=== PATIENT | female | born 1985 | race Caucasian/White ===

== ENCOUNTER 2025-03-14 10:02 | Outpatient (OUT) | payer OTHER, SELFPAY ==
--- OUTSIDE RECORDS SUMMARY | 2024-01-12 09:00 | XMS_ITS ---
Author Organization [facility] Address [address] [place] [phone] Care Team Providers Care Aesthetician Name Role Phone Avelina Hagan Unavailable [phone] REASON FOR VISIT anxiety and depression Encounters Encounter Location Date Provider Diagnosis Main [address] [place] [id number] 01/12/2024 Avelina Hagan Plan Of Treatment No Information Progress Notes * Pallavi BRAND RDOB: [birth year] (40 yo F)Acc No.[id number]:01/12/2024 Medical Note Patient: Pallavi GALLOWAY Provider: Darin Hagan MD :1985 A ge:38 Y S ex:Female Date:01/12/2024 Address:[address] [place], [place] [id number] Subjective: * Chief Complaints: * 1 . Anxiety and depression. * Medical History: Objective: * Vitals: Assessment: Plan: * Treatment: * Billing Information: * Visit Code: * Procedure Codes: * Electronic signature of Luis Hagan MD on 03/14/2025 at 10:08 AM EDT Sign off status: Pending * Provider: Darin Hagan MD Date: 01/12/2024 Generated for Printi ng/Faxing/eTransmitting on: 03/14/2025 10:08 AM EDT
--- OUTSIDE RECORDS SUMMARY | 2024-03-17 11:50 | XMS_ITS ---
Author Organization [facility] Address [address] [place] [address] Care Team Providers Care Refrigeration Tech Name Role Phone Claudio Cortes Primary Care Provider Encounters Encounter Location Date Provider Diagnosis [address] [place] [address] 03/17/2024 Claudio Cortes Adult general medica l examination Z00.00 ASSESSMENTS Encounter Date Diagnosis Assessment Notes Treatment Notes Treatment Clinical Notes Section Notes 03/17/2024 Adult general medical examination (ICD-10 - Z00.00) PLAN OF TREATMENT No Information Progress Notes * Pallavi JOSHIDOB: 5 (39 yo F)Acc No.[id number]:03/17/2024 Patient: Pallavi JOSHI :1985 Age:39 Y Sex:Female Address:[address] [place] [address] Subjective: * Chief Complaints: * * Medical History: * Surgical History: * Hospitalization/Major Diagno stic Procedure: * Medications: Objective: Assessment: * Assessment: 1. Adult general medical examination - Z00.00 (Primary) Plan: * Treatment: * Procedure Codes: * true * Date:
--- OUTSIDE RECORDS SUMMARY | 2024-03-23 04:00 | XMS_ITS ---
Author Organization [facility] Address [address] [place] [address] Care Team Providers Care Circulation Worker Name Role Phone Claudio Cortes Primary Care Provider RESULTS Component Value Reference Range Notes Comp. Metabolic Panel (14) ( CMP)(781748) Reviewed date:03/24/2024 06:34:21 AM Interpretation:Abnormal Performing Lab:[facility], [address] [facility], [place], [place] [id number], Phone - [phone], Director - Ruth Notes/Report: Glucose 102 70-99 mg/dL BUN 11 6-20 mg/dL Creatinine 0.75 0.57-1.00 mg/dL eGFR 104 >59 mL/min/1.73 BUN/Creatinine Ratio 15 9-23 Sodium 140 134-144 mmol/L Potassium 4.3 3.5-5.2 mmol/L Chloride 105 96-106 mmol/L Carbon Dioxide, Total 22 20-29 mmol/L Calcium 8.9 8.7-10.2 mg/dL Protein, Total 6.7 6.0-8.5 g/dL Albumin 4.5 3.9-4.9 g/dL Globulin, Total 2.2 1.5-4.5 g/dL A/G Ratio 2.0 Bilirubin, Total 0.3 0.0-1.2 mg/dL Alkaline Phosphatase 111 44-121 IU/L AST (SGOT) 24 0-40 IU/L ALT (SGPT) 34 0-32 IU/L Hemoglobin A1c (S/O) (194510 ) Reviewed date:03/24/2024 06:32:14 AM Interpretation:Normal Performing Lab:[address] [id number], Phone - [phone], Director - [facility] Notes/Report: Hemoglobin A1c 5.6 4.8-5.6 % . Prediabetes: 5.7 - 6.4 Diabetes: >6.4 Glycemic control for adults with diabetes: <7.0 TSH ([id number]) Reviewed date:03/24/2024 06:33:46 AM Interpretation:Normal Performing Lab:[address] [id number], Phone - [phone], Director - [facility] Notes/Report: TSH 1.730 0.450-4.500 uIU/mL CBC With Differential/Platel et ([id number]) Reviewed date:03/24/2024 06:35:15 AM Interpretation:Normal Performing Lab:[address] [id number], Phone - [phone], Director - [facility] Notes/Report: WBC 7.7 3.4-10.8 x10E3/uL RBC 4.81 3.77-5.28 x10E6/uL Hemoglobin 13.6 11.1-15.9 g/dL Hematocrit 40.9 34.0-46.6 % MCV 85 79-97 fL MCH 28.3 26.6-33.0 pg MCHC 33.3 31.5-35.7 g/dL RDW 12.7 11.7-15.4 % Platelets 289 150-450 x10E3/uL Neutrophils 55 Not Estab. % Lymphs 37 Not Estab. % Monocytes 7 Not Estab. % Eos 1 Not Estab. % Basos 0 Not Estab. % Immature Cells Neutrophils (Absolute) 4.2 1.4-7.0 x10E3/uL Lymphs (Absolute) 2.8 0.7-3.1 x10E3/uL Monocytes(Absolute) 0.5 0.1-0.9 x10E3/uL Eos (Absolute) 0.1 0.0-0.4 x10E3/uL Baso (Absolute) 0.0 0.0-0.2 x10E3/uL Immature Granulocytes 0 Not Estab. % Immature Grans (Abs) 0.0 0.0-0.1 x10E3/uL NRBC Hematology Comments: Lipid Panel w/ Chol/HDL Rati o ([id number]) Reviewed date:03/24/2024 06:33:14 AM Interpretation:Abnormal Performing Lab:[facility], [address] [place] [address], [place], [place] [id number], Phone - [phone], Director - Ruth Notes/Report: Cholesterol, Total 216 100-199 mg/dL Triglycerides 87 0-149 mg/dL HDL Cholesterol 55 >39 mg/dL VLDL Cholesterol Sloan 15 5-40 mg/dL LDL Chol Calc ([facility]) 146 0-99 mg/dL LDL Calc Comment: T. Chol/HDL Ratio 3.9 0.0-4.4 ratio T. Chol/HDL Ratio Men Women 1/2 Avg.Risk 3.4 3.3 Avg.Risk 5.0 4.4 2X Avg.Risk 9.6 7.1 3X Avg.Risk 23.4 11.0 REASON FOR VISIT fasting labs MEDICATIONS Medication SIG (Take, Route, Frequency, Duration) Notes Start Date End Date Status Escitalopram Oxalate 10 MG Oral for 30 Days Active buPROPion HCl ER (XL) 300 MG Oral for 30 Days Active Encounters Encounter Location Date Provider Diagnosis [address] [place] [id number] 03/23/2024 Claudio Cortes Adult general medica l examination Z00.00 ASSESSMENTS Encounter Date Diagnosis Assessment Notes Treatment Notes Treatment Clinical Notes Section Notes 03/23/2024 Adult general medical examination (ICD-10 - Z00.00) PLAN OF TREATMENT No Information Procedure Notes * Category Sub-Category Detail Notes Venipuncture Venipuncture: 21 g butterfly, RT AC Space, 1 of Attempts, Successful, sitting, Pressure and Clean Bandage Applied, Pt Tolerated Well Lauren GOMEZ Progress Notes * Pallavi BRANDDOB: [birth year] (39 yo F)Acc No.[id number]:03/23/2024 Patient: CATHIEJessikaPallavi Provider: Claudio Cortes MD :1985 Age:39 Y Sex:Female Date:03/23/2024 Address:[address] [place], [place] [id number] Subjective: * Chief Complaints: * 1. Fasting labs. * Medical History: * Medications: Taking buPROPion HCl ER (XL) 300 MG Tablet Extended Release 24 Hour Oral , Taking Escitalopram Oxalate 10 MG Tablet Oral Objective: Assessment: * Assessment: 1. Adult general medical examination - Z00.00 Plan: * Treatment: Value Reference Range Glucose, Serum 102 H 70-99 - mg/dL * BUN 11 6-20 - mg/dL * Creatinine, Serum 0.75 0.57-1.00 - mg/dL * BUN/Creatinine Ratio 15 9-23 - * Sodium, Serum 140 134-144 - mmol/L * Potassium, Serum 4.3 3.5-5.2 - mmol/L * Chloride, Serum 105 96-106 - mmol/L * Carbon Dioxide, Total 22 20-29 - mmol/L * Calcium, Serum 8.9 8.7-10.2 - mg/dL * Protein, Total, Serum 6.7 6.0-8.5 - g/dL * Albumin, Serum 4.5 3.9-4.9 - g/dL * Globulin, Total 2.2 1.5-4.5 - g/dL * A/G Ratio 2.0 - * Bilirubin, Total 0.3 0.0-1.2 - mg/dL * Alkaline Phosphatase, S 111 44-121 - IU/L * AST (SGOT) 24 0-40 - IU/L * ALT (SGPT) 34 H 0-32 - IU/L * eGFR 104 >59 - mL/min/1.73 * This lab was reviewed by Miguel Cortes on 03/24/2024 at 06:34 AM MDT ?LAB: Hemoglobin A1c (S/O) ([id number])* Value Reference Range Hemoglobin A1c 5.6 4.8-5.6 - % * This lab was reviewed by Miguel Cortes on 03/24/2024 at 06:32 AM MDT ?LAB: TSH ([id number])* Value Reference Range TSH 1.730 0.450-4.500 - uIU/mL * This lab was reviewed by Miguel Cortes on 03/24/2024 at 06:33 AM MDT ?LAB: CBC With Differential/Platelet ([id number])* Value Reference Range WBC 7.7 3.4-10.8 - x10E3/uL * RBC 4.81 3.77-5.28 - x10E6/uL * Hemoglobin 13.6 11.1-15.9 - g/dL * Hematocrit 40.9 34.0-46.6 - % * MCV 85 79-97 - fL * MCH 28.3 26.6-33.0 - pg * MCHC 33.3 31.5-35.7 - g/dL * RDW 12.7 11.7-15.4 - % * Platelets 289 150-450 - x10E3/uL * Neutrophils 55 Not Estab. - % * Lymphs 37 Not Estab. - % * Monocytes 7 Not Estab. - % * Eos 1 Not Estab. - % * Basos 0 Not Estab. - % * Neutrophils (Absolute) 4.2 1.4-7.0 - x10E3/u L * Lymphs (Absolute) 2.8 0.7-3.1 - x10E3/uL * Monocytes(Absolute) 0.5 0.1-0.9 - x10E3/uL * Eos (Absolute) 0.1 0.0-0.4 - x10E3/uL * Baso (Absolute) 0.0 0.0-0.2 - x10E3/uL * Immature Granulocytes 0 Not Estab. - % * Immature Grans (Abs) 0.0 0.0-0.1 - x10E3/uL * This lab was reviewed by Miguel Cortes on 03/24/2024 at 06:35 AM MDT ?LAB: Lipid Panel w/ Chol/HDL Ratio (454934)* Value Reference Range Cholesterol, Total 216 H 100-199 - mg/dL * Triglycerides 87 0-149 - mg/dL * HDL Cholesterol 55 >39 - mg/dL * T. Chol/HDL Ratio 3.9 0.0-4.4 - ratio * VLDL Cholesterol Sloan 15 5-40 - mg/dL * LDL Chol Calc ([facility]) 146 H 0-99 - mg/dL * Claudio Cortes 03/24/2024 06:33 :05 AM MDT > will do ASCVD as if 40y/oThis lab was reviewed by Claudio Cortes on 03/24/2024 at 06:33 AM T * Procedures: Venipuncture: Venipuncture: 21 g butterfly, RT AC Space, 1 of Attempts, Successful, sitting, Pressure and Clean Bandage Applied, Pt Tolerated Well Lauren GOMEZ. * Billing Information: * Visit Code: * Procedure Codes: * Sign off status: Completed true * Provider: Claudio Cortes MD Date: 03/23/2024
--- OUTSIDE RECORDS SUMMARY | 2024-03-24 05:30 | XMS_ITS ---
Author Organization [facility] Address [address] [place] [address] Care Team Providers Care Organizational Development Director Name Role Phone Claudio Cortes Primary Care Provider ALLERGIES Allergen (clinical drug ingredient) Drug/Non Drug Allergy documented on EMR Reaction Allergy Type Onset Date Status sulfamethoxazole / trimethoprim Bactrim rash Drug Allergy Active REASON FOR VISIT wellness MEDICATIONS Medication SIG (Take, Route, Frequency, Duration) Notes Start Date End Date Status buPROPion HCl ER (XL) 300 MG Oral for 30 Days Active Escitalopram Oxalate 10 MG Oral for 30 Days Active SOCIAL HISTORY Tobacco Use: Social History Observation Description Date Details (start date - stop date) Never Smoker NA - NA Sex Assigned At : Social History Observation Description Sex Assigned At Unknown Tobacco Use/Smoking Question Answer Notes Are you a nonuser Section Notes: EtOH - none. No illicit drugs Home with husb , 2 kids Preschool at [place] VITAL SIGNS Heart Rate 81 /min 03/24/2024 Oximetry 99 % 03/24/2024 Blood pressure systolic 120 mm Hg 03/24/20 24 Blood pressure diastolic 70 mm Hg 024 Weight 157.2 lbs 03/24/2024 Height 64 in 03/24/2024 BMI 26.98 03/24/2024 Weight-kg 71.3 kg 03/24/2024 Encounters Encounter Location Date Provider Diagnosis [place] [address] [place] [address] 03/24/2024 Claudio Cortes Adult general medica l examination Z00.00 ; Mild hyperlipidemia E78.5 ; Hyperglycemia R73.9 ; Plaque psoriasis L40.0 ; Psoriatic arthritis L40.50 and Major depressive disorder, single episode, moderate F32.1 ASSESSMENTS Encounter Date Diagnosis Assessment Notes Treatment Notes Treatment Clinical Notes Section Notes 03/24/2024 Adult general medical examination (ICD-10 - Z00.00) Discussed with pt the benefits of aerobic and strength exercise and discussed practical options for both with consideration of their current medical and functional condition. Discussed attempting to achieve/maintain their optimal waist circumference or potentially a decrease in weight of 10% vs a decrease in waist circumference of 3 to achieve a medical improvement. Suggested a clean diet with portion control with adequate healthy fats and little processing. Try to avoid high fructose corn syrup, aspartame and sucralose.Discusse d safety measures, including car and abduction considerations, specific to the patient. Discussed importance of sleep and ideas for improved sleep hygeine. Discussed colonoscopy recommendations based on age and prior results. Recommended self breast exam monthly. Discussed recommendations for pap smear based on age, sexual history and prior pap results. Discussed timing of bone density based on age, age at menopause and risk factors. Reviewed recommendations for all age-appropriate vaccines, injections. Recommend yearly flu shot. Calcium intake should be 8368-3885 mg daily - preferably from dietary sources but can supplement if dietary intake is inadequate. Take vitamin D3 2000 IU daily. 03/24/2024 Mild hyperlipidemia (ICD-10 - E78.5) Discussed lipids and calculated ASCVD risk at 0.6%. Counseled on lowering LDL with diet and wt loss. Noted that lipids do not follow a prediabetic pattern 03/24/2024 Hyperglycemia (ICD-10 - R73.9) Discussed h/o gestational diabetes. Feel this episode may relate to prolonged fasting. Will repeat glucose next year with a shorter fast. Reviewed normal a1c. Discussed lowering risk of DM in the future with diet and optimal WC. 03/24/2024 Plaque psoriasis (ICD-10 - L40.0) Cont to work with dermatology - currently seeking approval for otezla 03/24/2024 Psoriatic arthritis (ICD-10 - L40.50) Discussed importance of addressing inflammatory arthritis early to avoid further joint destruction. Offered assistance if needed in otezla approval process. 03/24/2024 Major depressive disorder, single episode, moderate (ICD-10 - F32.1) Discussed prior unsuccessful attempts at dose reduction. Will cont current doses of escitalopram and bupropion. Reinforced diet, exercise, prayer/meditation means to help maintain her mood status. 03/24/2024 Other Specific to thi s patient and their age, fitness level and comorbid conditions, discussed practical suggestions for aerobic, strength exercise and optimal diet. Try not to focus on weight but on waist circumference and healthy habits. Try to avoid artificial sugars like high fructose corn syrup, aspartame, sucralose - stevia may be better. Try to stand more and consider talking/singing while walking or in car. Limit processed foods. Discussed optimal waist circumference. Discussed concept that 100 calorie differences could be worth more that 10 lbs each year and gave examples of these. PLAN OF TREATMENT Treatment Notes Assessment Notes Adult general medical examination Discus sed with pt the benefits of aerobic and strength exercise and discussed practical options for both with consideration of their current medical and functional condition. Discussed attempting to achieve/maintain their optimal waist circumference or potentially a decrease in weight of 10% vs a decrease in waist circumference of 3 to achieve a medical improvement. Suggested a clean diet with portion control with adequate healthy fats and little processing. Try to avoid high fructose corn syrup, aspartame and sucralose.Discussed safety measures, including car and abduction considerations, specific to the patient. Discussed importance of sleep and ideas for improved sleep hygeine. Discussed colonoscopy recommendations based on age and prior results. Recommended self breast exam monthly. Discussed recommendations for pap smear based on age, sexual history and prior pap results. Discussed timing of bone density based on age, age at menopause and risk factors. Reviewed recommendations for all age-appropriate vaccines, injections. Recommend yearly flu shot. Calcium intake should be 0016-9542 mg daily - preferably from dietary sources but can supplement if dietary intake is inadequate. Take vitamin D3 2000 IU daily. Mild hyperlipidemia Discussed lipids and calculated ASCVD risk at 0.6%. Counseled on lowering LDL with diet and wt loss. Noted that lipids do not follow a prediabetic pattern Hyperglycemia Discussed h/o gestat ional diabetes. Feel this episode may relate to prolonged fasting. Will repeat glucose next year with a shorter fast. Reviewed normal a1c. Discussed lowering risk of DM in the future with diet and optimal WC. Plaque psoriasis Cont to work with [facility] - currently seeking approval for [facility] Psoriatic arthritis Discussed importance of addressing inflammatory arthritis early to avoid further joint destruction. Offered assistance if needed in otezla approval process. Major depressive disorder, s carlos episode, moderate Discussed prior unsuccessful attempts at dose reduction. Will cont current doses of escitalopram and bupropion. Reinforced diet, exercise, prayer/meditation means to help maintain her mood status. Other Specific to this pat ient and their age, fitness level and comorbid conditions, discussed practical suggestions for aerobic, strength exercise and optimal diet. Try not to focus on weight but on waist circumference and healthy habits. Try to avoid artificial sugars like high fructose corn syrup, aspartame, sucralose - stevia may be better. Try to stand more and consider talking/singing while walking or in car. Limit processed foods. Discussed optimal waist circumference. Discussed concept that 100 calorie differences could be worth more that 10 lbs each year and gave examples of these. Next Appt Details Follow Up: 1 Year, Reason: lennox delgado Progress Notes * Pallavi BRANDDOB: [birth year] (39 yo F)Acc No.[id number]:03/24/2024 Patient: Pallavi BRAND Provider: Claudio Cortes MD :1985 Age:39 Y Sex:Female Date:03/24/2024 Address:[address] [place], [place] [address] Subjective: * Chief Complaints: * Wellness * HPI: Depression/Anxiety Screening: PHQ-2 (2015 Edition)* Little interest or pleasure in doing things? Not at all Feeling down, depressed or hopeless? Not at all Total score: 0 Depression Screening: CHRISTINA-7 (2018 Edition) Feeling nervous, anxious, or on edge Not at all Not being able to stop or control worrying Not at all Worrying too much about different things Not at all Trouble relaxing Not at all Being so restless that it is hard to sit still Not at all Becoming easily annoyed or irritable Not at all Feeling afraid as if something awful might happen Not at all Total CHRISTINA-7 Score 0 Interpretation of Total (0 to 4) No Anxiety *: Feels well. Getting ready for grad republic[employer]. Denies any pain. Has been working with dermatology on starting otezla. Small red patches on ankles, knees and elbows. Sleep is good. Good bowel, bladder fxn. Denies moles changing. Does regular SBE. Feels diet is pretty good. No attention to artificial sugars. Lots of flavored teas. * Medical History: * Store Lead History: Periods : every 20-25 days, normal blood loss. Last pap smear date 03/01/2021. Last mammogram date 03/20/2021. * OB History: Total pregnancies 1. # 1: 1, normal spontaneous vaginal delivery () - vacuum assist. * Surgical History: No Surgical History documented. * Hospitalization/Major Diagno stic Procedure: No Hospitalization History. * Family History: Father: alive 64 yrs, diagnosed with Hypertension, Hyperlipidemia, Arthritis. Mother: alive 62 yrs. Son(s): alive 17 yrs. Sister 1: alive 33 yrs. Brother 1: alive 41 yrs. * Social History: Tobacco Use: Tobacco Use/Smoking Are you a nonuser EtOH - none. No illicit drugs Home with [facility] , 2 kids Preschool at [place]. * Medications: TakingbuPROPion HCl ER (XL) 300 MG Tablet Extended Release 24 Hour Oral Escitalopram Oxalate 10 MG Tablet Oral Medication List reviewed and reconciled with the patientTaking buPROPion HCl ER (XL) 300 MG Tablet Extended Release 24 Hour Oral Taking Escitalopram Oxalate 10 MG Tablet Oral Medication List reviewed and reconciled with the patient * Allergies: Bactrim: rash - Allergy - Criticality Unknownno[Allergies Verified] Objective: * Vitals: HR:81, Oxygen sat:99%, BP:120/70mm Hg, Wt:157.2lbs, Wt Ch.6 lbs, Wt Chg %: 3.69%, Ht:64in, BMI:26.98, WC:33.5Inch, Wt-k.3 kg. * Examination: General Exam: : GENERAL APPEARANCE: alert and oriented, pleasant, well nourished, no acute distress. HEAD: normocephalic , atraumatic , no scalp lesions. EYES: pupils equal, round, reactive to light and accommodation, extraocular movement intact, conjunctiva clear. EARS: auditory canal clear, tympanic membrane intact, clear, light reflex present. NOSE: nares patent. ORAL CAVITY: mucosa moist, no lesions. Dentition is good. THROAT: clear, no erythema, no exudate, uvula midline. NECK/THYROID: neck supple, thyroid normal, no lymphadenopathy. LYMPH NODES: no cervical adenopathy. HEART: S1, S2 normal, regular rate and rhythm, no murmurs. LUNGS: clear to auscultation bilaterally, good air movement, no wheezes, rales, rhonchi. CHEST: normal shape and expansion. No palpable mass. ABDOMEN: normal bowel tones present, soft, nontender, nondistended, no masses palpable. MUSCULOSKELETAL: full range of motion of neck, shoulders, elbows, wrists, full range of motion in hips, knees, ankles, no swelling of any joints noted. SKIN: warm and dry, good turgor, no rashes. EXTREMITIES: no cyanosis, clubbing, or edema. Lito red patches ant ankles, posterior elbows.. PERIPHERAL PULSES: normal (2+) bilaterally. NEUROLOGIC: nonfocal, normal exam. PSYCH: alert, oriented, cognitive function intact, cooperative with exam, speech clear. Assessment: * Assessment: 1. Adult general medical examination - Z00.00 (Primary) 2. Mild hyperlipidemia - E78.5 3. Hyperglycemia - R73.9 4. Plaque psoriasis - L40.0 5. Psoriatic arthritis - L40.50 6. Major depressive disorder, single episode, moderate - F32.1 Plan: * Treatment: 2. Mild hyperlipidemia Notes: Discussed lipids and calculated ASCVD risk at 0.6%. Counseled on lowering LDL with diet and wt loss. Noted that lipids do not follow a prediabetic pattern 3. Hyperglycemia Notes: Discussed h/o gestational diabetes. Feel this episode may relate to prolonged fasting. Will repeat glucose next year with a shorter fast. Reviewed normal a1c. Discussed lowering risk of DM in the future with diet and optimal WC. 4. Plaque psoriasis Notes: Cont to work with dermatology - currently seeking approval for otezla 5. Psoriatic arthritis Notes: Discussed importance of addressing inflammatory arthritis early to avoid further joint destruction. Offered assistance if needed in otezla approval process. 6. Major depressive disorder, single episode, moderate Notes: Discussed prior unsuccessful attempts at dose reduction. Will cont current doses of escitalopram and bupropion. Reinforced diet, exercise, prayer/meditation means to help maintain her mood status. 7. Others Notes: Specific to this patient and their age, fitness level and comorbid conditions, discussed practical suggestions for aerobic, strength exercise and optimal diet. Try not to focus on weight but on waist circumference and healthy habits. Try to avoid artificial sugars like high fructose corn syrup, aspartame, sucralose - stevia may be better. Try to stand more and consider talking/singing while walking or in car. Limit processed foods. Discussed optimal waist circumference. Discussed concept that 100 calorie differences could be worth more that 10 lbs each year and gave examples of these. * Procedure Codes: 1036F Nicotine [id number] BMI [id number] Depression [id number] Anxiety ScreeningASCVD ASCVD COUNSELING * Follow Up: 1 Year (Reason: wellness) * Billing Information: * Visit Code: 34101 Prev visit est age 18 - 39 comprehensive exam. * Procedure Codes: 1036F Nicotine Screening - Non-user (Current). 3008F BMI Screening. 3351F Depression Screening - NEGATIVE Screening (PHQ9 <10). 87862 Anxiety Screening. ASCVD ASCVD COUNSELING. * Sign off status: Completed true * Provider: Claudio Cortes MD Date: 03/24/2024 History and Physical Notes * HPI (History of Present Illness) Category Sub-Category Detail Notes Category Not es Depression/Anxiety Screening PHQ-2 (2015 Edition)* Little interest or pleasure in doing things?: Not at all Feeling down, depressed or hopeless?: No t at all Total score:: 0 Depression Screening CHRISTINA-7 (2018 Edition) Feelin g nervous, anxious, or on edge: Not at all Not being able to stop or control worryi ng: Not at all Worrying too much about different things : Not at all Trouble relaxing: Not at all Being so restless that it is hard to sit still: Not at all Becoming easily annoyed or irritable: No t at all Feeling afraid as if something awful rolando ht happen: Not at all Total CHRISTINA-7 Score: 0 Interpretation of Total: (0 to 4) No Anx iety * Feels well. Get ting ready for grad republican. Denies any pain. Has been working with dermatology on starting otezla. Small red patches on ankles, knees and elbows. Sleep is good. Good bowel, bladder fxn. Denies moles changing. Does regular SBE. Feels diet is pretty good. No attention to artificial sugars. Lots of flavored teas. Examination Category Sub-Category Detail Notes Category Not es General Exam: GENERAL APPEARANCE: alert and or iented, pleasant, well nourished, no acute distress HEAD: normocephalic , atra umatic , no scalp lesions EYES: pupils equal, round, reactive to light and accommodation, extraocular movement intact, conjunctiva clear EARS: auditory canal clear , tympanic membrane intact, clear, light reflex present NOSE: nares patent THROAT: clear, no erythema, no exudate, uvula midline NECK/THYROID: neck supple, thyroid normal, no lymphadenopathy HEART: S1, S2 normal, regul ar rate and rhythm, no murmurs CHEST: normal shape and exp ansion. No palpable mass LUNGS: clear to auscultatio n bilaterally, good air movement, no wheezes, rales, rhonchi ABDOMEN: normal bowel tones p resent, soft, nontender, nondistended, no masses palpable NEUROLOGIC: nonfocal, normal exa m SKIN: warm and dry, good t urgor, no rashes EXTREMITIES: no cyanosis, clubbin g, or edema. Lito red patches ant ankles, posterior elbows. PERIPHERAL PULSES: normal (2+) bilatera lly MUSCULOSKELETAL: full range of motion of neck, shoulders, elbows, wrists, full range of motion in hips, knees, ankles, no swelling of any joints noted LYMPH NODES: no cervical adenopat hy PSYCH: alert, oriented, cog nitive function intact, cooperative with exam, speech clear ORAL CAVITY: mucosa moist, no les ions. Dentition is good
--- OUTSIDE RECORDS SUMMARY | 2024-04-09 04:45 | XMS_ITS ---
Author Organization [facility] vices Address [address] [place] [place] [id number] Care Team Providers Care Rotary Furnace Tender Name Role Phone Avelina Hagan Unavailable [phone] REASON FOR VISIT f/u depression & anxiety Encounters Encounter Location Date Provider Diagnosis Main [address] [place] [id number] 04/09/2024 Avelina Hagan Plan Of Treatment No Information Progress Notes * Pallavi BRAND RDOB: [birth year] (40 yo F)Acc No.[id number]:04/09/2024 Medical Note Patient: Dari GALLOWAYnifer Porsha Provider: Darin Hagan MD :1985 A ge:39 Y S ex:Female Date:04/09/2024 Address:[address] [place], [place] [id number] Subjective: * Chief Complaints: * 1 . F/u depression & anxiety. * Medical History: Objective: * Vitals: Assessment: Plan: * Treatment: * Billing Information: * Visit Code: * Procedure Codes: * Electronic signature of Luis Hagan MD on 03/14/2025 at 10:07 AM EDT Sign off status: Pending * Provider: Darin Hagan MD Date: 04/09/2024 Generated for Printi ng/Faxing/eTransmitting on: 03/14/2025 10:07 AM EDT
--- OUTSIDE RECORDS SUMMARY | 2025-03-14 10:07 | XMS_ITS | Encounter Summary ---
Author Organization [facility] Address [id number] [address] [place] [address] Care Team Providers Care Certified Executive Chef Name Role Phone Staci Clay APRN-STOVE BOTTOM WORKER Primary Care Provider [phone] Reason for Visit * Reason Onset Date Comments Med Refill 05/07/2017 Encounter Details Date Type Department Care Team (Late st Contact Info) Description 05/07/2017 Refill [facility] [address] [place] [address] Any Gonsalez MA Anxiety (Primary Dx); Depression, unspecified depression type Social History Tobacco Use Types Packs/Day Years Used Date Smoking Tobacco: Never Assessed Comments Unknown Sex and Gender Information Value Date Recorded Sex Assigned at Not on file Legal Sex Female 11:38 AM EDT Gender Identity Not on file Sexual Orientation Not on file documented as of this encounter Miscellaneous Notes * Telephone Encounter - Any Gonsalez MA - 08/05/2017 3:56 PM EDT Left msg for pt * Telephone Encounter - Avelina Hagan MD - 05/08/2017 10:04 AM EDT Please schedule follow up appt. * Telephone Encounter - Any Gonsalez MA - 05/07/2017 11:06 AM EDT Pt ready for refill of her escitalopram Any Gonsalez MA 05/07/17 1106 documented in this encounter Plan of Treatment Not on file documented as of this encounter Visit Diagnoses Diagnosis Anxiety- Primary Anxiety state, unspecified Depression, unspecified depression type documented in this encounter Care Teams Certified Executive Chef Relationship Specialty Start Date End Date Staci Clay, DISABILITY PROGRAM NAVIGATOR-STOVE BOTTOM WORKER [address] [place] [address] PCP - General Nurse Practitioner 10/25/24 documented as of this encounter
--- OUTSIDE RECORDS SUMMARY | 2025-03-14 10:07 | XMS_ITS | Encounter Summary ---
Author Organization [facility] Address [facility] [id number] [address] [place] [address] Care Team Providers Care Dog Pound Attendant Name Role Phone Staci Clay Primary Care Provider [phone] Reason for Visit * Reason Comments Med Refill Encounter Details Date Type Department Care Team (Late st Contact Info) Description 02/26/2017 Refill [facility] [address] [place] [address] [facility] [place], [place] [id number] Anxiety (Primary Dx); Depression, unspecified depression type Social History Tobacco Use Types Packs/Day Years Used Date Smoking Tobacco: Never Assessed Comments Unknown Sex and Gender Information Value Date Recorded Sex Assigned at Not on file Legal Sex Female 11:38 AM EDT Gender Identity Not on file Sexual Orientation Not on file documented as of this encounter Plan of Treatment Not on file documented as of this encounter Visit Diagnoses Diagnosis Anxiety- Primary Anxiety state, unspecified Depression, unspecified depression type documented in this encounter Care Teams Dog Pound Attendant Relationship Specialty Start Date End Date Staci Clay APRN-CNP [address] [place] [address] PCP - General Nurse Practitioner 10/25/24 documented as of this encounter
--- OUTSIDE RECORDS SUMMARY | 2025-03-14 10:07 | XMS_ITS | Encounter Summary ---
Author Organization [facility] Address [facility] [id number] [address] [place] [address] Care Team Providers Care Linesperson Name Role Phone Staci Clay Primary Care Provider [phone] Reason for Visit * Reason Comments Med Refill Encounter Details Date Type Department Care Team (Late st Contact Info) Description 09/23/2017 Refill [facility] [address] [place] [address] Avelina Hagan MD [facility] [place], [place] [id number] Anxiety; Depression, unspecified depression type Social History Tobacco [...] as of this encounter Visit Diagnoses Diagnosis Anxiety Anxiety state, unspecified Depression, unspecified depression type documented in this encounter Care Teams Linesperson Relationship Specialty Start Date End Date Staci Clay APRN-CNP [address] [place] [address] PCP - General Nurse Practitioner 10/25/24 documented as of this encounter
--- OUTSIDE RECORDS SUMMARY | 2025-03-14 10:07 | XMS_ITS | Patient Health Record ---
Author Organization [facility] [employer] Address [address] [place] [address] Care Team Providers Care Mission Assessment Specialist Name Role Phone Claudio Cortes Primary Care Provider ALLERGIES Allergen (clinical drug ingredient) Drug/Non Drug Allergy documented on EMR Reaction Allergy Type Onset Date Status sulfamethoxazole / trimethoprim Bactrim rash Drug Allergy Active RESULTS Component Value Reference Range Notes Comp. Metabolic Panel (14) ( CMP)([id number]) Reviewed date:03/24/2024 06:34:21 AM Interpretation:Abnormal Performing Lab:[facility], [address], [place] [id number], Phone - [phone], Director - PhDRicchiroberti Notes/Report: Glucose 102 70-99 mg/dL BUN 11 [...] (SGPT) 34 0-32 IU/L Hemoglobin A1c (S/O) (563336 ) Reviewed date:03/24/2024 06:32:14 AM Interpretation:Normal Performing Lab:[address] [id number], Phone - [phone], Director - [facility] Notes/Report: Hemoglobin A1c 5.6 4.8-5.6 % . Prediabetes: 5.7 - 6.4 Diabetes: >6.4 Glycemic control for adults with diabetes: <7.0 TSH (471235) Reviewed date:03/24/2024 06:33:46 AM Interpretation:Normal Performing Lab:[address] [id number], Phone - [phone], [facility]Report: TSH 1.730 0.450-4.500 uIU/mL CBC With Differential/Platel et (085687) Reviewed date:03/24/2024 06:35:15 AM Interpretation:Normal Performing Lab:[address] [id number], Phone - [phone], [facility] Notes/Report: WBC 7.7 3.4-10.8 x10E3/uL [...] Comments: Lipid Panel w/ Chol/HDL Rati o (574147) Reviewed date:03/24/2024 06:33:14 AM Interpretation:Abnormal Performing Lab:[facility], [address] [place] [id number], Phone - [phone], Director - Ruth Notes/Report: Cholesterol, Total 216 100-199 mg/dL Triglycerides 87 0-149 mg/dL HDL Cholesterol 55 >39 mg/dL VLDL Cholesterol Sloan 15 5-40 mg/dL LDL Chol Calc ([facility]) 146 0-99 mg/dL LDL Calc Comment: T. Chol/HDL Ratio 3.9 0.0-4.4 ratio T. Chol/HDL Ratio Men Women 1/2 Avg.Risk 3.4 3.3 Avg.Risk 5.0 4.4 2X Avg.Risk 9.6 7.1 3X Avg.Risk 23.4 11.0 REASON FOR REFERRAL No Information MEDICATIONS Medication SIG (Take, Route, Frequency, Duration) [...] with husb , 2 kids [facility] [place] EtOH - none. No illicit drugs Home with husb , 2 kids [facility] [place] PROBLEMS Problem Type ICD Code Onset Dates Problem Status W/U Status Risk SNOMED Code Notes Problem Depression, major, single episode, moderate (F32.1) Active confirmed VITAL SIGNS Heart Rate 81 /min 03/24/2024 Oximetry 99 % 03/24/2024 Blood pressure diastolic 70 mm Hg 03/24/2024 Weight-kg 71.3 kg 03/24/2024 Height 64 in 03/24/2024 Blood pressure systolic 120 mm Hg 03/24/2024 Weight 157.2 lbs 03/24/2024 BMI 26.98 03/24/2024 Encounters Encounter Location Date Provider Diagnosis [facility] [address] [place] [address] 03/24/2024 Claudio Cortes Adult general medica l examination Z00.00 ; Mild hyperlipidemia E78.5 ; Hyperglycemia R73.9 ; Plaque psoriasis L40.0 ; Psoriatic arthritis L40.50 and Major depressive disorder, single episode, moderate F32.1 [facility] [place] [address] [place] [address] 03/23/2024 Claudio Cortes Adult general medica l examination Z00.00 [facility] [address] [place] [address] 03/17/2024 Claudio Cortes Adult general medica l examination Z00.00 ASSESSMENTS Encounter Date Diagnosis Assessment Notes Treatment Notes Treatment Clinical Notes Section Notes 03/17/2024 Adult general medical examination (ICD-10 - Z00.00) 03/23/2024 Adult general medical examination (ICD-10 - Z00.00) 03/24/2024 Adult general medical examination (ICD-10 - [...] yearly flu shot. Calcium intake should be 0026-0660 mg daily - preferably from dietary sources [...] gave examples of these. PLAN OF TREATMENT No Information Insurance Providers Payer Name Payer Address Payer Phone Subscriber Number Group Number Insured Name Patient Relationship to Insured Coverage Start Date Coverage End Date JESSICA PEREZ [facility] [address] [place] [address] [id number] Pallavi Joshi Self - patient is the insured MEDICAL (GENERAL) HISTORY Medical History History ICD Code Depression, major, single episode, moder ate F32.1
--- NOTE | 2025-03-14 10:08 | MM_ITS ---
Patient Name: ASAEL BRAND MR#: [id number] : 1985 Exam Date: 03/14/2025 Ordering Doctor: NON-STAFF PHYSICIAN RADIOLOGY REPORT PROCEDURE: MM TOMOSYNTHESIS SCREENING BI COMPARISON: MG MAMM DIAGNOSTIC 3D JM CAD, 03/20/2021. INDICATIONS: Screening Calculator Name NCI Breast Cancer Risk Assessment Tool 5 Year Breast Cancer Risk 0.70% Lifetime Breast Cancer Risk 10.10% Personal Breast Cancer No Personal Ovarian Cancer No Treatments None Family Cancers Mother with melanoma cancer at age 55; Grandmother-maternal with melanoma cancer at age ~75. LOCATION: [facility] BREAST COMPOSITION: The breasts are heterogeneously dense,which may obscure small masses. FINDINGS: DIAGNOSTIC CATEGORY 2--BENIGN FINDING: RIGHT BREAST: No significant suspicious finding. There is a similar focal asymmetry in the right breast. Benign-appearing lymph nodes are noted along the chest wall. LEFT BREAST: No significant suspicious finding. Benign-appearing calcifications are present. Benign-appearing lymph nodes are noted along the chest wall. RECOMMENDATIONS: ROUTINE MAMMOGRAM AND CLINICAL EVALUATION IN 12 MONTHS. PLEASE NOTE: A NORMAL MAMMOGRAM DOES NOT EXCLUDE THE POSSIBILITY OF BREAST CANCER. A CLINICALLY SUSPICIOUS PALPABLE LUMP SHOULD BE BIOPSIED. Dictated by: Ranjan Mar MD on 03/14/2025 at 16:01 Approved by: Ranjan Mar MD on 03/14/2025 at 16:05
--- OUTSIDE RECORDS SUMMARY | 2025-03-14 10:08 | XMS_ITS | Data Portability ---
Author Organization [place] [facility] Abdoul [facility] Address [address] [place] [address] Care Team Providers Care Commissary Assistant Name Role Phone ALENA CORTES Primary Care Provider Assessment No assessment recorded. Plan of Treatment Reminders Order Date Submit Date Provider Last Modified By Organization Details Last Modified Time Details Appointments None recorded. Lab None recorded. Referral physical therapist referral - Evaluation and treatment 2024 025 ester 3 Satish Delatorre ([facility]), [address] [place], [address], 5 15:46:54 Procedures None recorded. Surgeries None recorded. Imaging MAMMO, screening, bilateral [address] (Outpatient Testing), [address] [place], [address], 10:45:27 XR, chest, 2 view 2024 025 [facility], [address] [place], [address], 11:33:38 Medication Orders escitalopra m 10 mg tablet 2024 025 [facility], [address] [place], [address], 10:51:49 escitalopra m 10 mg tablet 2024 025 [facility], [address] [place], [address], 10:42:39 escitalopra m 5 mg tablet 2024 025 [facility], [address] [place], [address], 12:20:17 diclofenac sodium 75 mg tablet,tejal yed release 2024 025 [facility], [address], [place], [place], [id number], 10:28:25 methylpredn isolone 4 mg tablets in a dose pack 2023 024 [facility], [address], [place], [place], [id number], 08:42:13 Patient TargetsNo targets recorded. Patient Instructions Encounter Date Encounter Id Patient Instructions Last Modified By Organization Details Last Modified Time 09/14/2024 [id number] costochondritis: care instructions [email or web address] Not available 09/14/2024 14:20:19 Discussed etiolo gies of chest pain; discussed likely musculoskeletal. Discussed medication treatment to decrease inflammation. Advised to rest, no heavy lifting, apply heat as needed and take medications as directed. Discussed s/s for seeking immediate medical attention including shortness of breath, irregular heart beat and radiating chest pain. ECG attempted in office today but unable to complete due to equipment failure. Advised patient to follow up in 5-7 days if symptoms not improving; at that time will consider ECG and/or chest xray. Patient acknowledged understanding and agreed with treatment plan. Not available 09/14/2024 14:22:49 10/25/2024 [id number] costochondritis: care instructions [email or web address] Not available 10/25/2024 08:52:29 Discussed medica tion therapy. Discussed etiology and expected course of costochondritis. Continue to rest chest area, avoid heavy lifting and apply heat as needed. Advised will follow up with chest xray results. Follow up in 4 weeks. Not available 10/25/2024 09:18:50 11/22/2024 [id number] costochondritis: care instructions [email or web address] Not available 11/22/2024 12:29:30 Generalized Anxi ety Disorder: Care Instructions [email or web address] Not available 11/22/2024 12:29:30 depression treatment: care instructions [email or web address] Not available 11/22/2024 12:29:30 Discussed evalua tion and treatment per physical therapy for continued costochondritis symptoms. Patient requests referral sent to [facility]. Discussed use of medication for depression and anxiety; will initiate lexapro 5 mg. Discussed nonpharmacologic therapies including exercise, eating a well balanced diet, meditation and counseling. Pt declined counseling referral at this time. Discussed s/s for seeking immediate medical attention. Follow up in 4 weeks or sooner as needed. [email or web address] Not available 11/22/2024 12:29:06 12/22/2024 [id number] depression treatment: care instructions [email or web address] Not available 12/22/2024 12:03:41 Generalized Anxi ety Disorder: Care Instructions Not available 12/22/2024 12:03:41 Eczema: Care Instructions [email or web address] Not available 12/22/2024 12:03:41 Discussed medica tion management; increased escitalopram to 10 mg daily. Encouraged increased exercise, meditation, relaxation, adequate sleep and staying hydrated. Discussed eczema treatment including use of otc hydrocortisone cream with mild moisturizer such as cetaphil. Follow up in 6 weeks or sooner if needed. Not available 12/22/2024 12:03:34 02/07/2025 [id number] depression treatment: care instructions [email or web address] Not available 02/07/2025 10:42:10 breast self-exam : care instructions [email or web address] Not available 02/07/2025 10:42:10 Generalized Anxi ety Disorder: Care Instructions [email or web address] Not available 02/07/2025 10:42:10 Discussed medica tion management in addition to non pharmacologic therapies including but not limited to exercise, healthy diet, counseling and socialization. Continue taking medication as prescribed. Pt to follow up with new established pcp for further refills as needed. Will fax mammogram order [facility]; pt will wait to schedule until after 2025. Will follow up with mammogram results. Follow up as needed until 04/11/2025 and then begin with new pcp. Not available 02/07/2025 10:44:41 Reason for Referral Physical Therapist Referral for Costal chondritis Evaluation and treatment of costochondritis Evaluation and treatment Referring Physician: Staci Clay, Family Medicine, Encounter Date: 11/22/2024 Results Created Date Observation Date Name Description Value Unit Range Abnormal Flag Note LastModifiedBy Organization Detail LastModifiedTime 10/25/1910/25/2024 XR, chest , 2 view No observ ation record ed. [email or web address] [place] [address] (Radiology) [address] [place], [address], 10/28/2024 10:10:39 Result Notes None recorded. Problems Name Problem SNOMED Code Status Onset Date Resolution Date Notes Provider Name and Address Organization Details Recorded Time Moderate major depression, single episode 08184057 Active Problem Code: F32.1; Problem Code Type: ICD-10; Staci Clay [employer]ICE [employer] [address], [place], [address], [place] [facility] 4 13:24:39 Generalized anxiety disorder 88195612 Active 2024 Staci Clay [employer]ING MACHINE SERVICE OPERATOR [address], [place], [address], [place] [facility] 5 10:31:19 Problem Notes None recorded. Medical Equipment None Reported. Allergies Allergen ID Allergen Name Allergen Category Reaction Reaction Severity Criticality Documentation Date Start Date Code Code System Note Provider Name and Address Organization Details Recorded Time 968020 Bactrim medicatio n rash Not available Not available 06/19/2024 21572 9 RxNorm Type: Aller gy Aller gyCod e: '4970 8-014 5-' ; Aller gyNam e: 'Bact rim'; Aller gyCon ceptT ype: 'NDC' ; Aller gyRea ction Sever ity: 'Unkn own'; Not Available [facility] 14:22:48 Medications Name Sig Start Date Stop Date Status Note LastModified by Organization Details LastModified Time betametha sone dipropion ate 0.05 % topical cream 09/14 completed Not Available Not Available Not Available diclofena c sodium 75 mg tablet,de layed release Take 1 tablet every 12 hours by oral route for 30 days. 12/22 completed Not Available Not Available Not Available methylpre dnisolone 4 mg tablets in a dose pack Take 1 dose pk by oral route as directed for 6 days. 10/25 completed Not Available Not Available Not Available escitalop amari 10 mg tablet Take 1 tablet every day by oral route for 30 days. 2024 active Not Available Not Available Not Avai lable cyclobenz aprine 5 mg tablet take 1-2 tablet by mouth THREE TIMES A DAY NEEDED FOR 7 DAYS 09/14 completed Not Available Not Available Not Available bupropion HCl XL 300 mg 24 hr tablet, extended release Oral 09/14 completed Encounte r Date: 03/24/20 24 Status: 'Taking' ; Not Available Not Available Not Available escitalop amari 5 mg tablet TAKE 1 TABLET BY MOUTH DAILY 12/22 completed Not Available Not Available Not Available Vitals Date Recorded Body height Body mass index (BMI) Body weight Heart rate Oxygen saturation Oxygen saturation in Arterial blood by Pulse oximetry Systolic blood pressure Diastolic blood pressure Provider Name and Address Organization Details Last Updated DateTime 5 162.56 cm 27.1 kg/m2 68206.1 6 g 77 /min 99 % 99 % 116 mm[Hg] 78 mm[Hg] Polly Izquierdo [place] [facility] 5 08:36:20 Date Recorded Body height Body mass index (BMI) Body weight Oxygen saturation Oxygen saturation in Arterial blood by Pulse oximetry Heart rate Systolic blood pressure Diastolic blood pressure Provider Name and Address Organization Details Last Updated DateTime 5 162.56 cm 26.7 kg/m2 21207.6 9 g 99 % 99 % 68 /min 115 mm[Hg] 78 mm[Hg] HAYES PETER [place] [facility] 5 11:05:55 Date Recorded Heart rate Respiratory rate Systolic blood pressure Diastolic blood pressure Provider Name and Address Organization Details Last Updated DateTime 12/22/2024 72 /min 16 /min 115 mm[Hg] 75 mm[Hg] Staci Obed [address], [place], [address] , [place] [facility] 12/22/2024 09:59:24 Date Recorded Body height Body mass index (BMI) Body weight Provider Name and Address Organization Details Last Updated DateTime 12/22/2024 162.56 cm 26.1 kg/m2 27180.32 g HAYES PETER [place] [facility] 12/22/2024 09:48:40 Date Recorded Body height Body mass index (BMI) Body weight Oxygen saturation Oxygen saturation in Arterial blood by Pulse oximetry Heart rate Systolic blood pressure Diastolic blood pressure Provider Name and Address Organization Details Last Updated DateTime 162.56 cm 26.6 kg/m2 28056.8 2 g 99 % 99 % 68 /min 115 mm[Hg] 75 mm[Hg] HAYES PETER [place] [facility] 10:01:43 Date Recorded Body height Body mass index (BMI) Body weight Heart rate Oxygen saturation Oxygen saturation in Arterial blood by Pulse oximetry Systolic blood pressure Diastolic blood pressure Provider Name and Address Organization Details Last Updated DateTime 162.56 cm 27.4 kg/m2 08863.3 4 g 76 /min 99 % 99 % 122 mm[Hg] 84 mm[Hg] HAYES PETER [place] [facility] 13:20:19 Social History Question Answer Notes LastModified by Organizat ion Details LastModified Time Tobacco Smoking Status Never Smoker SocialHis toryQuest ion: 'Tobacco Use/Smoki ng'; SocialHis toryRespo nse: 'Are you a: nonuser'; Not Available [facility] 07/18/2024 06:33:42 What Is The Highest Grade Or Level Of School You Have Completed Or The Highest Degree You Have Received? [id number] [email or web address] Information not available 09/14/2024 Have You Ever Served In The ? No [email or web address] Information not available 09/14/2024 What Was The Date Of Your Most Recent Tobacco Screening? 11/22/2024 [email or web address] Information not available 11/22/2024 What Is Your Relationship Status? [email or web address] Information not available 09/14/2024 Has Tobacco Cessation Counseling Been Provided? Yes [email or web address] Information not available 11/22/2024 On What Date Was Tobacco Cessation Counseling Provided? 11/22/2024 [email or web address] Information not available 11/22/2024 Sex: Unknown Functional Status Question Answer Note LastModified by Organization D etails LastModified Time What is your occupation? Teacher [email or web address] Information not available 09/14/2024 Mental Status None recorded. Family History Relationship Description Onset Age of this Age Resolved Age Notes LastModified by Organization Details LastModified Time Father Essential hypertension diagno sed with Hypert ension [email or web address] Not available 07/18/2024 04:32:52 Father Hyperlipidem ia diagno sed with Hyperl ipidem ia [email or web address] Not available 07/18/2024 04:32:52 Father Osteoarthrit is diagno sed with Arthri tis [email or web address] Not available 07/18/2024 04:32:52 Notes:*Relative: Brother*Pro blem: alive 41 yrsRelative: 'Brother 1'; *Relative: Sister*Problem: alive 33 yrsRelative: 'Sister 1'; *Relative: Father*Problem: alive 64 yrs *Relative: Son*Problem: alive 17 yrsRelative: 'Son(s)'; *Relative: Mother*Problem: alive 62 yrs Medical History No medical history recorded. Gynecological HistoryNo gynecological history recorded. Obstetrics History GPAL:G 1 P 0 0 0 0 Type Value Multiple Births 0 Full Term 0 Induced 0 Spontaneous 0 Premature 0 Living 0 Ectopics 0 Total 1 Immunizations Vaccine Type Date Status Note Provider Nam e and Address Organization Details Recorded Time MMR 6 completed HAYES PETER null, [place] [facility] 11/22/2024 11:01:58 MMR 7 completed HAYES PETER null, [place] [facility] 11/22/2024 11:01:58 Tdap 1 completed HAYES PETER null, [place] [facility] 11/22/2024 11:01:58 DTP 7 completed HAYES PETER null, [place] [facility] 11/22/2024 11:01:58 DTP 0 completed HAYES PETER null, [place] [facility] 11/22/2024 11:01:58 DTP 5 completed HAYES PETER null, [facility] 11/22/2024 11:01:58 DTP 5 completed HAYES PETER null, [facility] 11/22/2024 11:01:58 DTP 5 completed HAYES PETER null, [facility] 11/22/2024 11:01:58 OPV 7 completed HAYES PETER null, [facility] 11/22/2024 11:01:58 OPV 0 completed HAYES PETER null, [facility] 11/22/2024 11:01:58 OPV 5 completed HAYES PETER null, [facility] 11/22/2024 11:01:58 OPV 5 completed HAYES PETER null, [facility] 11/22/2024 11:01:58 OPV 5 completed HAYES PETER null, [facility] 11/22/2024 11:01:58 Td (adult), 2 Lf tetanus toxoid, preservative free, adsorbed 7 completed HAYES PETER null, [facility] 11/22/2024 11:01:58 Hep B, adolescent or pediatric 0 completed HAYES PETER null, [facility] 11/22/2024 11:01:58 Hep B, adolescent or pediatric 7 completed HAYES PETER null, [facility] 11/22/2024 11:01:58 Hep B, adolescent or pediatric 8 completed HAYES PETER null, [facility] 11/22/2024 11:01:58 Past Encounters Encounter ID Performer Location Encounter Start Date Encounter Closed Date Diagnosis/Indication Diagnosis SNOMED-CT Code Diagnosis ICD10 Code Diagnosis Note [id number] Alena Cortes MD [facility] [address] [place] [address] 09/14/2024 13:01:41 09/14/2024 14:52:58 Costal chondritis 55765265 M94.0 [id number] Alena Cortes MD [facility] [address] [place] [address] 10/25/2024 08:24:44 10/25/2024 09:20:29 Costal chondritis 94103149 M94.0 [id number] Alena Cortes MD 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 [address] [place] [address] 12/22/2024 09:42:05 12/22/2024 12:04:07 Moderate major depression, single episode 80967379 F32.1 Counseling 990622478 Z71 .9 Vesicular eczema of hand 760695917 L30.8 Generalize d anxiety disorder 87130179 F41.1 [id number] MD [facility] [address] [place] [address] 02/07/2025 09:55:01 02/07/2025 10:45:26 Generalized anxiety disorder 16778297 F41.1 Mild recur rent major depression 43084988 F33.0 Screening mammography 24 796391 Z12.31 Counseling 177715862 Z71 .9 Health Concerns Section Related Observation LastModified by Organization Detai ls LastModified Time None Recorded Concern Status LastModified by Organization Details LastModified Time None Recorded Advance Directives Directive None Recorded Payers Insurance Date Sequence Insurance Name Policy Number Policy Garcia Covered Member ID Garcia Member ID Guarantor Name 09/14/2024 1 *SELF PAY* UNKNOWN Pallavi Martínez [id number] Pallavi Martínez 09/14/2024 1 *SELF PAY* UNKNOWN Pallavi Martínez [id number] Pallavi Martínez 02/04/2025 1 [facility] - PPO [id number] Pallavi Martínez [id number] Pallavi Quirosmercyarely Notes Date Note Type Note Provider Name and Address Organization Details Recorded Time 09/14/2024 text/html MARY is a 39 yo female presenting for gradual onset pain in midsternal chest onset one week ago. Pain has worsened over the last few days. Has taken acetaminophen and ibuprofen with little relief in symptoms. 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 Pain worsens with lifting, moving arms and laughing. Pain 6/10 at worst. Staci Clay CASTING MACHINE SERVICE OPERATOR [address], [place], [address], [place] [facility] 09/14/2024 14:23:02 10/25/2024 text/html MARY is a 39 yo female presenting with continued cracking and pain in right midsternal area onset late August. Patient was seen 09/14 and given medrol dosepak; took medication and states symptoms improved but continues to have intermittent cracking with arm movement and minimal aching pain. Pain 3/10 at worst; aching. Has taken ibuprofen and used heating pad as needed with some relief in symptoms. Staci Clay CASTING MACHINE SERVICE OPERATOR [address], [place], [address], [place] [facility] 10/25/2024 09:19:02 11/22/2024 text/html MARY is a 39 yo female presenting for follow up for costochondritis. Pt reports continued intermittent popping in her chest. States she recently had a uri and coughing exacerbated symptoms. Continues to take diclofenac as needed but states that is becoming less frequent. Pt also states that her anxiety and depression symptoms have been worsening over the last few months. States she was taking wellbutrin and lexapro for several years and self discontinued taking both medications this summer. Was following with Avelina Hagan at [facility] for depression/anxiety but now uses [facility] for primary care. 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 Feels once she makes a career change that her mental health will improve, but would like to go back on medication as she feels symptoms are not manageable currently. Staci Clay CASTING MACHINE SERVICE OPERATOR [address], [place], [address], [place] [facility] 11/22/2024 12:29:44 12/22/2024 text/html MARY is a 39 yo female presenting for follow up depression and anxiety management. Pt states that she does not feel a significant decrease in symptoms since starting medication; would like to consider increasing medication dose. Pt states her primary source of depression and anxiety is related to work. She has put in her resignation and will be done with work at the end of February. Spring break is next week and pt plans to visit her daughter out of state and take a needed break from work. Pt also reports small, red bumps on right hand onset two weeks ago. Mildly itchy. Pt states skin on her hands has been dry over the winter months. Denies use of new detergents, lotions, etc. Occasionally applies cetaphil moisturizer. Staci Clay CASTING MACHINE SERVICE OPERATOR [address], [place], [address], [place] [facility] 12/22/2024 12:03:44 02/07/2025 text/html MARY is a 39 yo female presenting for anxiety/depression management. Pt states she has 20 days left of work and feels a huge sense of relief in her anxiety and depression symptoms although she does not have a new job lined up yet. Feels the medication has helped take the edge off symptoms to make them manageable. Pt will lose current insurance benefits on 04/11/2025; plans to switch to [facility] for primary care once she is on her 's insurance. Pt also requests order for mammogram as she will be turning 40 next month. Staci Clay NP [address], [place], [address], [facility] 02/07/2025 10:46:15 OBGyn Episode No OBEpisode recorded.
--- OUTSIDE RECORDS SUMMARY | 2025-03-14 10:08 | XMS_ITS | Clinical Summary ---
Author Organization [facility] Address [address] [place] [address] Care Team Providers Care Precision Grinder Name Role Phone Pallavi Ponce MD Primary Care Provider [phone] Social History Tobacco Use Types Packs/Day Years Used Date Smoking Tobacco: Never Assessed Comments Unknown Sex and Gender Information Value Date Recorded Sex Assigned at Not on file Legal Sex Female 6:53 PM EDT Gender Identity Not on file Sexual Orientation Not on file Plan of Treatment Not on file Care Teams Precision Grinder Relationship Specialty Start Date End Date Pallavi Ponce MD [address] [place] [address] PCP - General Family Medicine 02/18/23
--- OUTSIDE RECORDS SUMMARY | 2025-03-14 10:08 | XMS_ITS | Clinical Summary ---
Author Organization [employer] Address [id number] [address] [place] [address] Care Team Providers Care Patient Registrar Name Role Phone Staci Clay Cyn [employer]PER[employer]OR-TUMBLING BARREL PAINTER Primary Care Provider [phone] Allergies Active Allergy Reactions Criticality Noted Date Comments Sulfamethoxazole-Trimethoprim Anaphylaxis High 04/17 Medications escitalopram (LEXAPRO) 20 mg tabletIndication s:Anxiety,Depres candida, unspecified depression type Take 1 tablet (20 mg total) by mouth once daily. 90 tablet 7 Active Additional Information Patient not taking.Reported on 05/05/2018 FLUoxetine (PROzac) 20 mg capsule daily. 8 Active Active Problems Problem Noted Date Diagnosed Date Tachycardia 05/05/2018 Heart palpitations Family History Medical History Relation Name Comments Cancer Maternal Grandfather Cancer Mother Relation Name Status Comments Father Alive Maternal Grandfather Mother Alive Social History Tobacco Use Types Packs/Day Years Used Date Smoking Tobacco: Never Smokeless Tobacco: Never Alcohol Use Standard Drinks/Week Comments No 0 (1 standard drink = 0.6 oz pur e alcohol) Childcare Answer Date Recorded Childcare Unknown 03/16/2019 Employment Answer Date Recorded Employment Unknown 03/16/2019 Purpose - Life Answer Date Recorded Purpose and direction in life Unknown Comments Unknown Sex and Gender Information Value Date Recorded Sex Assigned at Not on file Legal Sex Female 11:38 AM EDT Gender Identity Not on file Sexual Orientation Not on file Last Filed Vital Signs Vital Sign Reading Time Taken Comments Blood Pressure 114/64 05/05/2018 9:04 AM EDT Pulse 76 05/05/2018 9:04 AM EDT Temperature - - Respiratory Rate - - Oxygen Saturation - - Inhaled Oxygen Concentration - - Weight 73.5 kg (162 lb) 05/05/2018 9:04 AM EDT Height 162.6 cm (5' 4 ) 05/05/2018 9:04 AM EDT Body Mass Index 27.81 05/05/2018 9:04 AM EDT Plan of Treatment Health Maintenance Due Date Last Done Comments Depression Screening 1997 Tobacco Screening 1997 Adult BMI Screening 2003 Pap Smear 2006 Influenza Vaccine 06/13/2025 DTaP,Tdap and Td Vaccines (8 - Td or Tdap) 05/23/2031 05/23/2021, 05/25/1997, 04/27/1990, Additional history exists Medical Devices Not on file Insurance [id number] Care Teams Patient Registrar Relationship Specialty Start Date End Date Staci Clay, [place]-TUMBLING BARREL PAINTER [address] [place] [address] PCP - General Nurse Practitioner 10/25/24
== END 2025-03-14 10:03 | disposition home or self-care (01) ==
LOC: MAMMO 10:04
DX: Z12.31 Encounter for screening mammogram for malignant neoplasm of breast (principal); Z80.8 Family history of malignant neoplasm of other organs or systems
CPT/HCPCS: 77063; 77067